=== PATIENT | female | born 1970 | race Caucasian/White ===

== ENCOUNTER → 2020-11-08 | Outpatient (CLI) | payer BC | END | disposition home or self-care (01) | LOC: LABMAIN 01:09 | PROVIDERS: ATTEND Emergency Medicine | DX: Z20.828 Contact with and (suspected) exposure to other viral communicable diseases (principal) | CPT/HCPCS: 36415; 86769 ==

== ENCOUNTER 2021-04-14 15:56 | Observation (INO) | payer BC ==
[2021-04-14 16:36] LABS: Basophils # (A) 0.1 k/uL (0-0.2); Basophils % (A) 1 %; Eosinophils # (A) 0.1 k/uL (0-0.7); Eosinophils % (A) 2 %; HCT 42.2 % (34.0-46.0); HGB 14.5 gm/dL (11.4-16.0); Lymphocytes # (A) 2.3 k/uL (1.0-4.8); Lymphocytes % (A) 34 %; MCH 31.3 pg (25.0-35.0); MCHC 34.4 g/dL (31.0-37.0); Mean Platelet Volume 7.7; Monocytes # (A) 0.3 k/uL (0-1.0); Monocytes % (A) 5 %; Neutrophils # (A) 3.7 k/uL (1.3-7.7); Neutrophils % (A) 56 %; Platelet Count 287 k/uL (150-450); RBC 4.64 m/uL (3.80-5.40); RDW 12.8 % (11.5-15.5); WBC 6.7 k/uL (3.8-10.6)
[2021-04-14 16:43] LABS: ALT 14 U/L (4-34); AST 24 U/L (14-36); African American GFR (CKD) >90 (>60 ml/min/1.73 sqM); Albumin 4.8 g/dL (3.5-5.0); Alkaline Phosphatase 80 U/L (38-126); Anion Gap 10 mmol/L; Blood Urea Nitrogen 20 mg/dL (7-17); Calcium 9.5 mg/dL (8.4-10.2); Carbon Dioxide 25 mmol/L (22-30); Chloride 106 mmol/L (98-107); Creatine Kinase 176 U/L (30-135); Glucose 118 mg/dL (74-99); Magnesium 2.3 mg/dL (1.6-2.3); Non-African American GFR(CKD) 84 (>60 ml/min/1.73 sqM); Sodium 141 mmol/L (137-145); Total Bilirubin 0.6 mg/dL (0.2-1.3); Total Protein 7.4 g/dL (6.3-8.2)
--- NOTE | 2021-04-14 16:43 | XR ---
EXAMINATION TYPE: XR chest 2V DATE OF EXAM: 04/14/2021 COMPARISON: NONE HISTORY: Pain and tingling TECHNIQUE: 2 view FINDINGS: Heart and mediastinum are normal. Lungs are clear. Diaphragm is normal. Bony thorax is inta ct. IMPRESSION: Normal chest.
[2021-04-14 16:51] LABS: D-Dimer 0.19 mg/L FEU (<0.60); INR 0.9 (<1.2); Partial Thromboplastin Time 22.6 sec (22.0-30.0); Prothrombin Time 9.5 sec (9.0-12.0)
--- NOTE | 2021-04-14 17:01 | ED ---
Chest Pain HPI - General Chief Complaint: Chest Pain Stated Complaint: Chest Pain Time Seen by Provider: 04/14/21 16:00 Source: patient, RN notes reviewed Mode of arrival: ambulatory Limitations: no limitations - History of Present Illness Initial Comments: This is a 50-year-old female with a benign history who states she had the onset today of chest pain this started in her right antecubital portion of her arm went across her chest down the left arm. She had 3 episodes us far lasting about a minute each. No prior history of anything like this. She does states she was moving wood yesterday but is unable to read produce the discomfort in any fashion. She denies any shortness of breath cough fevers chills nausea vomiting sweats. Pain is currently 0 at this time was MD Complaint: chest pain - Related Data Home Medications Medication Instructions Recorded Confirmed Cetirizine HCl [Zyrtec] 10 mg PO HS 04/14/21 04/14/21 Allergies Allergy/AdvReac Type Severity Reaction Status Date / Time No Known Allergies Allergy Verified 04/14/21 16:27 Review of Systems ROS Statement: Those systems with pertinent positive or pertinent negative responses have been documented in the HPI. ROS Other: All systems not noted in ROS Statement are negative. EKG Findings - EKG Results: EKG: interpreted by KRUNAL NAVARRO, sinus rhythm, normal axis, normal QRS, normal ST/T, no acute changes (Normal sinus rhythm 83. Interval 136 QRS 90 QT since QTC 352/413) Past Medical History Past Medical History: No Reported History History of Any Multi-Drug Resistant Organisms: None Reported Past Surgical History: Hysterectomy, Tonsillectomy Past Psychological History: No Psychological Hx Reported Smoking Status: Never smoker Past Alcohol Use History: Occasional Past Drug Use History: None Reported General Exam - General Exam Comments Initial Comments: This is a well-developed well-nourished awake alert oriented 3 female Limitations: no limitations General appearance: alert, in no apparent distress Head exam: Present: atraumatic, normocephalic, normal inspection Eye exam: Present: normal appearance, PERRL, EOMI. Absent: scleral icterus, conjunctival injection, periorbital swelling ENT exam: Present: normal exam, mucous membranes moist Neck exam: Present: normal inspection, full ROM. Absent: tenderness, meningismus, lymphadenopathy Respiratory exam: Present: normal lung sounds bilaterally. Absent: respiratory distress, wheezes, rales, rhonchi, stridor, chest wall tenderness Cardiovascular Exam: Present: regular rate, normal rhythm, normal heart sounds. Absent: systolic murmur, diastolic murmur, rubs, gallop, clicks GI/Abdominal exam: Present: soft, normal bowel sounds. Absent: distended, tenderness, guarding, rebound, rigid Extremities exam: Present: normal inspection, full ROM, normal capillary refill. Absent: tenderness, pedal edema, joint swelling, calf tenderness Back exam: Present: normal inspection Neurological exam: Present: alert, oriented X3, CN II-XII intact Psychiatric exam: Present: normal affect, normal mood Skin exam: Present: warm, dry, intact, normal color. Absent: rash Course Vital Signs 04/14/21 04/14/21 04/14/21 16:07 16:23 17:00 Temperature 98.4 F Pulse Rate 92 80 Respiratory 16 16 16 Rate Blood Pressure 195/109 193/95 O2 Sat by Pulse 99 100 Oximetry 04/14/21 17:29 Temperature Pulse Rate 76 Respiratory 16 Rate Blood Pressure 182/97 O2 Sat by Pulse 100 Oximetry Chest Pain MDM - MDM I did discuss findings with the patient she'll be admitted for inpatient evaluation and treatment of chest pain. I did discuss case with Dr. Mckeon, Dr. Davis did come the emergency department to see the patient. X-ray imaging unremarkable Disposition Clinical Impression: Atypical chest pain Disposition: ADMITTED IP TO THIS [facility] Condition: Fair Referrals: Aníbal Calix DO [Primary Care Provider] - 1-2 days
[2021-04-14] MEDS ORDERED: ASPIRIN 325 MG TAB PO STA (17:50)
[2021-04-14] MEDS ORDERED: NITROGLYCERIN SL TABS 0.4 MG TAB SUBLINGUAL PRN (17:58)
[2021-04-14] MEDS ORDERED: LOSARTAN 25 MG TAB PO STA (18:05)
[2021-04-14] MEDS ORDERED: NALOXONE 0.4 MG/ML 1 ML VIAL IV PRN (18:16)
[2021-04-14] MEDS ORDERED: MORPHINE SULFATE 4 MG/ML SYRINGE IV PRN (18:16)
[2021-04-14] MEDS ORDERED: ACETAMINOPHEN TAB 325 MG TAB PO PRN (18:16)
[2021-04-14] MEDS ORDERED: ONDANSETRON 4 MG/2 ML VIAL IVP PRN (18:16)
[2021-04-14] MEDS ORDERED: cloNIDine HCL 0.1 MG TAB PO PRN (18:18)
--- NOTE | 2021-04-14 18:30 | P.HPIM ---
History of Present Illness H&P Date: 04/14/21 Chief Complaint: chest pain Patient is a 50-year-old female with no known past medical history who presented to the ER with a height of chest discomfort. On arrival to the ER she was hypertensive with a blood pressure of 195/109. Initial EKG showed no evidence of ST segment elevation or depression. Initial troponin was negative, BNP was negative. Initial chest x-ray showed no acute process. Arrangements are made for admission. Yesterday unloading wood without chest pain. Right arm heaving tingling ache goes up the arm across the chest and down into the other arm. No shortness of breath. + diaphoresis, no nausea, no jaw pain. Feels anxious with the episodes. She has had 4 episode in total lasting 2 minutes or less. Have happened at rest and with movement. Had a headache yesterday. Intermittent chest discomfort for the last week that was attributed to breast pain initially and was pressing on breast. Pertinent positives and negatives as discussed in HPI, a complete review of systems was performed and all other systems are negative. General: non toxic, no distress, appears at stated age Derm: warm, dry Head: atraumatic, normocephalic, symmetric Eyes: EOMI, no lid lag, anicteric sclera, pupils equal round reactive to light ENT: Nose and ears atraumatic, no thrush, no pharyngeal erythema Neck: No thyromegaly, no cervical lymphadenopathy, trachea midline, supple Mouth: no lip lesion, mucus membranes moist Cardiovascular: S1S2 reg, no murmur, positive posterior tibial pulse bilateral, no edema, capillary refill less than 2 seconds Lungs: clear to ascultation bilateral, no ronchi, no rales, no wheeze, no accessory muscle use Abdominal: soft, nontender to palpation, no guarding, no appreciable organomegaly, normal bowel sounds Ext: no gross muscle atrophy, muscle strength muscle strength 5 out of 5 in all 4 extremities, no contractures Neuro: CN II-XI grossly intact, light touch intact all 4 extremities, finger to nose within normal limits, Psych: Alert, oriented, appropriate affect Chest pain, some symptoms typical others not - currently chest pain free, if recurrent consider heparin gtt and BB - ASA - follow troponins - tele - consult cardiology - lipids in AM HTN urgency - cozaar oral X 1 now - prn catapress - follow BP The patient is placed in observation with an anticipated less than 2 midnight stay for evaluation of chest pain. DVT prophylaxis: SCDs Discussed with: Patient, nursing, ED physician Anticipated discharge date: in 1-[address]: home A total of 45 minutes was spent on the care of this complex patient more than 50% of the time was spent in counseling and care coordination. Past Medical History Additional Past Medical History / Comment(s): seasonal allergies History of Any Multi-Drug Resistant Organisms: None Reported Past Surgical History: Hysterectomy, Tonsillectomy Additional Past Surgical History / Comment(s): breast biopsy R and L, Ex Lap Past Psychological History: No Psychological Hx Reported Smoking Status: Never smoker Past Alcohol Use History: Occasional Past Drug Use History: None Reported - Past Family History family Additional Family Medical History / Comment(s): Mom- HTN and HLD. Aunt- CABG in 40s. Uncle- [place] in 60s Medications and Allergies Home Medications Medication Instructions Recorded Confirmed Type Cetirizine HCl [Zyrtec] 10 mg PO HS 04/14/21 04/14/21 History Allergies Allergy/AdvReac Type Severity Reaction Status Date / Time No Known Allergies Allergy Verified 04/14/21 16:27 Physical Exam Osteopathic Statement: *. No significant issues noted on an osteopathic structural exam other than those noted in the History and Physical/Consult. Vitals: Vital Signs Temp Pulse Resp BP Pulse Ox 04/14/21 17:29 76 16 182/97 100 04/14/21 17:00 80 16 193/95 100 04/14/21 16:23 16 04/14/21 16:07 98.4 F 92 16 195/109 99 Intake and Output 04/14/21 04/14/21 04/14/21 06:59 14:59 22:59 Other: Weight 61.235 kg Results CBC & Chem 7: 04/14/21 16:20 04/14/21 16:20 Labs: Abnormal Lab Results - Last 24 Hours (Table) 04/14/21 Range/Units 16:20 BUN 20 H (7-17) mg/dL Glucose 118 H (74-99) mg/dL Creatine Kinase 176 H (30-135) U/L
[2021-04-15] MEDS ORDERED: LOSARTAN 25 MG TAB PO SCH (09:00)
[2021-04-15] MEDS ORDERED: ASPIRIN 325 MG TAB PO SCH (09:00)
--- NOTE | 2021-04-15 09:03 | P.CRDCN ---
History of Present Illness Consult date: 04/15/21 Chief complaint: Chest pain History of present illness: This is a very pleasant 50-year-old female patient with no significant medical history who was admitted to the observation unit for further evaluation of chest discomfort. 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 She woke herself with the EKG machine and an EKG was performed which I reviewed and showed sinus rhythm without any ischemic ST or T-wave abnormalities. Subsequently the patient was admitted for further evaluation. She was ruled out for acute coronary event. 3 sets of cardiac enzymes were checked and came in to be unremarkable. Beside that the patient was found to be hypertensive when initially was evaluated in the emergency department. She was started on losartan 25 mg by mouth daily and the pressure continues to be slightly elevated but better than before and I did increase the dose of losartan to 50 mg by mouth daily. I with consider adding diuretics if she continues to be hypertensive. Currently she is chest pain-free. I informed the patient that the chest disc omfort is likely related to elevated blood pressure but also we need to rule out severe underlying coronary artery disease and I will obtain an exercise treadmill stress test tomorrow. Past Medical History Past Medical History: No Reported History Additional Past Medical History / Comment(s): seasonal allergies History of Any Multi-Drug Resistant Organisms: None Reported Past Surgical History: Hysterectomy, Tonsillectomy Additional Past Surgical History / Comment(s): breast biopsy R and L, Ex Lap Past Anesthesia/Blood Transfusion Reactions: Previous Problems w/ Anesthesia, Postoperative Nausea & Vomiting (PONV) Additional Past Anesthesia/Blood Transfusion Reaction / Comment(s): difficulty waking up Past Psychological History: No Psychological Hx Reported Smoking Status: Never smoker Past Alcohol Use History: Occasional Past Drug Use History: None Reported - Past Family History family Additional Family Medical History / Comment(s): Mom- HTN and HLD. Aunt- CABG in 40s. Uncle- [place] in 60s Medications and Allergies Home Medications Medication Instructions Recorded Confirmed Type Cetirizine HCl [Zyrtec] 10 mg PO HS 04/14/21 04/14/21 History Allergies Allergy/AdvReac Type Severity Reaction Status Date / Time No Known Allergies Allergy Verified 04/14/21 16:27 Physical Exam Vitals: Vital Signs Temp Pulse Pulse Resp BP BP BP 04/15/21 07:00 97.7 F 72 16 155/101 154/100 04/15/21 00:29 98.1 F 74 18 156/95 04/14/21 22:50 98.3 F 80 192/107 174/94 04/14/21 19:51 98.1 F 71 16 176/105 04/14/21 17:29 76 16 182/97 04/14/21 17:00 80 16 193/95 04/14/21 16:23 16 04/14/21 16:07 98.4 F 92 16 195/109 Pulse Ox 04/15/21 07:00 99 04/15/21 00:29 98 04/14/21 22:50 99 04/14/21 19:51 99 04/14/21 17:29 100 04/14/21 17:00 100 04/14/21 16:23 04/14/21 16:07 99 Intake and Output 04/14/21 04/15/21 04/15/21 22:59 06:59 14:59 Other: Voiding Method Toilet Toilet # Voids 1 1 Weight 61.235 kg - Constitutional General appearance: no acute distress - Respiratory Respiratory: bilateral: CTA - Cardiovascular Rhythm: regular Heart sounds: normal: S1, S2 Results 04/14/21 16:20 04/14/21 16:20 Cardiac Enzymes 04/14/21 04/14/21 04/14/21 Range/Units 16:20 16:20 19:19 AST 24 (14-36) U/L Troponin I <0.012 <0.012 (0.000-0.034) ng/mL 04/14/21 Range/Units 21:47 AST (14-36) U/L Troponin I <0.012 (0.000-0.034) ng/mL Coagulation 04/14/21 Range/Units 16:20 PT 9.5 (9.0-12.0) sec APTT 22.6 (22.0-30.0) sec CBC 04/14/21 Range/Units 16:20 WBC 6.7 (3.8-10.6) k/uL RBC 4.64 (3.80-5.40) m/uL Hgb 14.5 (11.4-16.0) gm/dL Hct 42.2 (34.0-46.0) % Plt Count 287 (150-450) k/uL Comprehensive Metabolic Panel 04/14/21 Range/Units 16:20 Sodium 141 (137-145) mmol/L Potassium 4.0 (3.5-5.1) mmol/L Chloride 106 (98-107) mmol/L Carbon Dioxide 25 (22-30) mmol/L BUN 20 H (7-17) mg/dL Creatinine 0.82 (0.52-1.04) mg/dL Glucose 118 H (74-99) mg/dL Calcium 9.5 (8.4-10.2) mg/dL AST 24 (14-36) U/L ALT 14 (4-34) U/L Alkaline Phosphatase 80 (38-126) U/L Total Protein 7.4 (6.3-8.2) g/dL Albumin 4.8 (3.5-5.0) g/dL Current Medications Generic Name Dose Route Start Last Admin Trade Name Freq PRN Reason Stop Dose Admin Acetaminophen 650 mg 04/14/21 18:16 Acetaminophen Tab 325 Mg Tab PO Q6HR PRN Mild Pain or Fever > 100.5 Aspirin 325 mg 04/15/21 09:00 Aspirin 325 Mg Tab PO DAILY KEYONNA Clonidine 0.1 mg 04/14/21 18:18 04/14/21 22:56 Clonidine Hcl 0.1 Mg Tab PO 0.1 mg TID PRN Administration Blood Pressure - High Losartan Potassium 50 mg 04/15/21 09:00 Losartan 50 Mg Tab PO DAILY KEYONNA Morphine Sulfate 4 mg 04/14/21 18:16 Morphine Sulfate 4 Mg/Ml Syringe IV Q4HR PRN Severe Pain Naloxone HCl 0.2 mg 04/14/21 18:16 Naloxone 0.4 Mg/Ml 1 Ml Vial IV Q2M PRN Opioid Reversal Nitroglycerin 0.4 mg 04/14/21 17:58 Nitroglycerin Sl Tabs 0.4 Mg Tab SUBLINGUAL Q5M PRN Chest Pain Ondansetron HCl 4 mg 04/14/21 18:16 Ondansetron 4 Mg/2 Ml Vial IVP Q8HR PRN Nausea And Vomiting Intake and Output 04/14/21 04/15/21 04/15/21 22:59 06:59 14:59 Other: Voiding Method Toilet Toilet # Voids 1 1 Weight 61.235 kg 04/14/21 16:20 04/14/21 16:20 Assessment and Plan Assessment: Assessment #1 hypertension emergency #2 chest discomfort likely secondary to hypertension emergency Plan #1 acute coronary event was ruled out #2 increase the dose of losartan #3 consider adding diuretics if she continues to be hypertensive #3 obtain an exercise treadmill stress test tomorrow
[2021-04-15] MEDS: LOSARTAN 50 MG TAB PO SCH (09:06)
[2021-04-15 09:09] LABS: MCHC 32.5 g/dL (32.0-37.0); MCV 95.2 fL (80.0-97.0); Mean Platelet Volume 10.6 fL (9.5-12.2); Platelet Count 265 X 10*3/uL (140-440); RDW 12.6 % (11.5-14.5); WBC 6.11 X 10*3/uL (4.50-10.00)
[2021-04-15 09:56] LABS: African American GFR (CKD) 99.6 (60.0-200.0); Anion Gap 6.4 mmol/L (4.00-12.00); BUN/Creat Ratio 18.75 Ratio (12.00-20.00); Carbon Dioxide 26.6 mmol/L (21.6-31.8); Chol/HDL Ratio 3.66; Potassium 4.5 mmol/L (3.5-5.5)
[2021-04-15] MEDS: hydroCHLOROthiazide 25 MG TAB PO SCH (12:37)
--- NOTE | 2021-04-15 14:06 | P.PN ---
Subjective Progress Note Date: 04/15/21 (Delayed charting seen at 12:15) Principal diagnosis: chest pain Patient is a 50-year-old female with no known past medical history who presented to the ER with a height of chest discomfort. On arrival to the ER she was hypertensive with a blood pressure of 195/109. Initial EKG showed no evidence of ST segment elevation or depression. Initial troponin was negative, BNP was negative. Initial chest x-ray showed no acute process. Arrangements are made for admission. She was profoundly hypertensive and she was given a dose of Cozaar. There was concerns for possible hypertensive urgency. She seen by cardiology who recommended increasing the Cozaar, optimizing blood pressure control, and stress test on 04/16. Patient seen and examined at bedside. She does continue to have some chest heaviness. Nothing as significant as yesterday. No shortness of breath, nausea, vomiting, or diaphoresis. The long discussion but it appears she has hypertensive urgency and likely long-standing hypertension as an outpatient. She is aware that she'll need togo home on medications. General: Nontoxic, no distress, appears at stated age Derm: warm, dry Head: atraumatic, normocephalic, symmetric Eyes: EOMI, no lid lag, anicteric sclera Mouth: no lip lesion, mucus membranes moist Cardiovascular: S1S2 reg, no murmur, positive posterior tibial pulse bilateral, Lungs: CTA bilateral, no rhonchi, no rales , no accessory muscle use Abdominal: soft, nontender to palpation, no guarding, no appreciable organomegaly Ext: no gross muscle atrophy, no edema, no contractures Neuro: CN II-XI grossly intact, no focal neuro deficits Psych: Alert, oriented, appropriate affect Hypertensive urgency with chest pain -Continue with aspirin, troponins are negative -Lipid profile within normal limits -Cardiology recommendations appreciated: Stress test in a.m., Cozaar increased -Add hydrochlorothiazide -Follow blood pressures -Continue with when necessary Catapres -Continue to follow telemetry DVT prophylaxis: SCDs Discussed with: Patient, nursing Anticipated discharge: In a.m. Anticipated discharge place: Home A total of 25 minutes was spent on the care of this complex patient more than 50% of the time was spent in counseling and care coordination. Objective - Vital Signs Vital signs: Vital Signs Temp 97.7 F 06/13/21 07:00 Pulse 72 04/15/21 07:00 Resp 18 04/15/21 08:00 BP 154/100 04/15/21 07:00 Pulse Ox 99 04/15/21 07:00 Intake & Output 04/14/21 04/15/21 04/15/21 18:59 06:59 18:59 Intake Total 236 Balance 236 Weight 61.235 kg Intake: Oral 236 Other: Voiding Method Toilet # Voids 1 - Labs CBC & Chem 7: 04/15/21 06:24 04/15/21 06:24 Labs: Abnormal Lab Results - Last 24 Hours (Table) 04/14/21 Range/Units 16:20 BUN 20 H (7-17) mg/dL Glucose 118 H (74-99) mg/dL Creatine Kinase 176 H (30-135) U/L
[2021-04-15] MEDS: NITROGLYCERIN OINT 1 INCH/GM PACKET TOPICAL SCH ×2 (14:30→17:53)
[2021-04-16] MEDS: NITROGLYCERIN OINT 1 INCH/GM PACKET TOPICAL SCH ×3 (00:32→05:55)
[2021-04-16] MEDS: LOSARTAN 50 MG TAB PO SCH (08:32)
[2021-04-16] MEDS: hydroCHLOROthiazide 25 MG TAB PO SCH (08:32)
[2021-04-16] MEDS ORDERED: ASPIRIN 81 MG PO SCH (09:00)
--- NOTE | 2021-04-16 10:17 | P.PN ---
Subjective Progress Note Date: 04/16/21 HISTORY OF PRESENT ILLNESS: This is a very pleasant 50-year-old female patient with no significant medical history who was admitted to the observation unit for further evaluation of chest discomfort. 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 She woke herself with the EKG machine and an EKG was performed which I reviewed and showed sinus rhythm without any ischemic ST or T-wave abnormalities. Subsequently the patient was admitted for further evaluation. She was ruled out for acute coronary event. 3 sets of cardiac enzymes were checked and came in to be unremarkable. Beside that the patient was found to be hypertensive when initially was evaluated in the emergency department. She was started on losartan 25 mg by mouth daily and the pressure continues to be slightly elevated but better than before and I did increase the dose of losartan to 50 mg by mouth daily. I with consider adding diuretics if she continues to be hypertensive. Currently she is chest pain-free. I informed the patient that the chest discomfort is likely related to elevated blood pressure but also we need to rule out severe underlying coronary artery disease and I will obtain an exercise treadmill stress test tomorrow. 04/16/2021 Patient examined at the bedside. Patient denies any further episodes of chest pain or discomfort. She denies shortness of breath. She is sitting up in the ch air in no acute distress. Blood pressure 148/94. PHYSICAL EXAM: VITAL SIGNS: Reviewed. GENERAL: Well-developed in no acute distress. NECK: Supple. No JVD or thyromegaly LUNGS: Respirations even and unlabored. Lungs essentially clear to auscultation bilaterally. HEART: Regular rate and rhythm. S1 and S2 heard. EXTREMITIES: Normal range of motion. No clubbing or cyanosis. Peripheral pulses intact. No lower extremity edema ASSESSMENT: Chest pain Hypertension PLAN: Continue current cardiac medications. Increase losartan to 100 mg daily Monitor blood pressure Discontinue nitro paste Decrease aspirin to 81 mg daily. May discontinue if stress test is negative Obtain 2-D echo to assess cardiac structure and function Patient to undergo stress test today. If negative she may be discharged home today from a cardiac standpoint Nurse practitioner note has been reviewed by physician. Signing provider agrees with the documented findings, assessment, and plan of care. Objective - Vital Signs Vital signs: Vital Signs Temp 97.9 F 04/16/21 07:00 Pulse 78 04/16/21 07:00 Resp 18 04/16/21 07:00 BP 148/94 04/16/21 07:00 Pulse Ox 98 04/16/21 07:00 Intake & Output 04/15/21 04/16/21 04/16/21 18:59 06:59 18:59 Intake Total 236 Balance 236 Intake: Oral 236 Other: Voiding Method Toilet Toilet # Voids 1 1 - Labs CBC & Chem 7: 04/15/21 06:24 04/15/21 06:24
[2021-04-16] MEDS ORDERED: LOSARTAN 50 MG TAB PO STA (11:10)
--- NOTE | 2021-04-16 15:00 | P.DS ---
Providers Date of admission: 04/14/21 17:58 Expected date of discharge: 04/16/21 Attending physician: Aaliyah Pool DO Consults: 04/14/21 18:17 Consult Physician Routine Consulting Provider: Socrates Brandon Consult Reason/Comments: chest pain Do you want consulting provider notified?: Yes Primary care physician: Aníbal Fifi [facility] Course: Patient is a 50-year-old female with no known past medical history who presented to the ER with a height of chest discomfort. On arrival to the ER she was hypertensive with a blood pressure of 195/109. Initial EKG showed no evidence of ST segment elevation or depression. Initial troponin was negative, BNP was negative. Initial chest x-ray showed no acute process. Arrangements are made for admission. She was profoundly hypertensive and she was given a dose of Cozaar. There was concerns for possible hypertensive urgency. She was seen by cardiology. She underwent a cardiac stress test that was reported negative. She was cleared by cardiology for discharge. She'll follow-up with her PCP for further management of her blood pressure. Patient Condition at Discharge: Fair Plan - Discharge Summary Discharge Rx Participant: No New Discharge Prescriptions: New Losartan [Cozaar] 50 mg PO DAILY #30 tab hydroCHLOROthiazide [Hydrodiuril] 25 mg PO DAILY #30 tab No Action Cetirizine HCl [Zyrtec] 10 mg PO HS Discharge Medication List Cetirizine HCl [Zyrtec] 10 mg PO HS 04/14/21 [History] Losartan [Cozaar] 50 mg PO DAILY #30 tab 04/16/21 [Rx] hydroCHLOROthiazide [Hydrodiuril] 25 mg PO DAILY #30 tab 04/16/21 [Rx] Follow up Appointment(s)/Referral(s): Aníbal Calix DO [Primary Care Provider] - 1-2 days Discharge Disposition: HOME SELF-CARE
[2021-04-16 15:12] VITALS: BP 128/83; PULSE 94; RESP 16; TEMP 98.1
[2021-04-17] MEDS ORDERED: LOSARTAN 50 MG TAB PO SCH (09:00)
--- NOTE | 2021-04-17 11:45 | ECHOF ---
Referral Reason:LV function MEASUREMENTS -------- HEIGHT: 152.4 cm WEIGHT: 61.2 kg BP: IVSd: 1.1 cm (0.6 - 1.1) LVIDd: 3.7 cm (3.9 - 5.3) LVPWd: 1.2 cm (0.6 - 1.1) IVSs: 1.3 cm LVIDs: 2.6 cm LVPWs: 1.3 cm LAESV Index (A-L): 18.37 ml/m Ao Diam: 2.6 cm (2.0 - 3.7) AV Cusp: 1.8 cm (1.5 - 2.6) LA Diam: 3.1 cm (2.7 - 3.8) MV EXCURSION: 13.666 mm (> 18.000) MV EF SLOPE: 45 mm/s (70 - 150) EPSS: 0.3 cm MV E Jonathan: 0.35 m/s MV DecT: 240 ms MV A Jonathan: 0.93 m/s MV E/A Ratio: 0.37 RAP: 5.00 mmHg RVSP: 21.70 mmHg FINDINGS -------- Sinus rhythm. This was a technically adequate study. LV size, wall thickness and systolic function are normal, with an EF greater than 55%. The left mdady tricular size is normal. The right ventricle is normal in size. Normal LA size by volume 22+/-6 ml/m2. The right atrial size is normal. The aortic valve is trileaflet, and appears structurally normal. No aortic stenosis or regurgitation. The mitral valve is normal. Mild mitral regurgitation is present. The tricuspid valve appears structurally normal. Mild tricuspid regurgitation present. Right vent ricular systolic pressure is normal at < 35 mmHg. There is no pulmonic regurgitation present. The aortic root size is normal. There is no pericardial effusion. CONCLUSIONS -------- 1. LV size, wall thickness and systolic function are normal, with an EF greater than 55%. 2. The left ventricular size is normal. 3. Normal LA size by volume 22+/-6 ml/m2. 4. The aortic valve is trileaflet, and appears structurally normal. No aortic stenosis or regurgitati on. 5. Mild mitral regurgitation is present. 6. Mild tricuspid regurgitation present. 7. There is no pericardial effusion. PRINT OPERATOR: Angeles Colbert RDCS
--- NOTE | 2021-04-18 13:58 | EST ---
EXERCISE STRESS DATE OF SERVICE: AGE: 50 SEX: F HT: @@ WT: @@ PROTOCOL: @@ STAGE: @@ DURATION OF EXERCISE: @@ HEART RATE REST: @@ BLOOD PRESSURE REST: @@ MAXIMUM HEART RATE ACHIEVED: @@ MAXIMUM BLOOD PRESSURE: @@ 85% MPHR: @@ 100% MPHR: @@ METS: @@ RESULTS: Baseline rhythm is sinus mechanism, rate of 97, normal axis. RSR prime. Baseline blood pressure 179/116 mmHg. Patient exercised on Blair protocol for 9 minutes 39 seconds reaching peak rate of 159 beats per minute which is equal to 94% maximum predicted heart rate. Peak blood pressure 171/68 mmHg. Test was terminated secondary to fatigue. There was no chest pain. Electrocardiograph monitoring revealed occasional PVCs. There was no evidence of diagnostic ischemic ST deviation. CONCLUSION: 1. Good exercise tolerance with occasional PVCs. 2. Normal electrocardiograph stress testing with no evidence of stress-induced ischemia. MMODL / IJN: [id number] /
== END 2021-04-16 15:36 | disposition home or self-care (01) ==
LOC: EC 15:56 → 6NMEDSUR 17:58
PROVIDERS: ADMIT Internal Medicine; ATTEND Internal Medicine
DX: I16.1 Hypertensive emergency (principal); I10 Essential (primary) hypertension; X50.0XXA Overexertion from strenuous movement or load, initial encounter; Z20.822 Contact with and (suspected) exposure to COVID-19; R20.2 Paresthesia of skin; N64.4 Mastodynia; J30.2 Other seasonal allergic rhinitis; Z79.899 Other long term (current) drug therapy; Z90.710 Acquired absence of both cervix and uterus; Z82.49 Family history of ischemic heart disease and other diseases of the circulatory system
CPT/HCPCS: 93005 ×2; 36415; 93017; 93306; 85379; 83880; 80061; 80053; 80048; 82550; 83735; 84484; 85025; 85027; 85610; 85730; 87635; 71046; G0378 ×3

== ENCOUNTER → 2021-09-23 | Outpatient (CLI) | payer BC, OTHER | END | disposition home or self-care (01) | LOC: LABWHC1 12:02 | PROVIDERS: ATTEND Emergency Medicine | DX: Z20.822 Contact with and (suspected) exposure to COVID-19 (principal) | CPT/HCPCS: 87635 ==

== ENCOUNTER → 2021-11-16 | Outpatient (CLI) | payer BC, OTHER ==
[2021-11-16 22:38] LABS: HCT 45.7 % (37.2-46.3); HGB 14.9 g/dL (12.0-15.0); MCH 30.4 pg (27.0-32.0); MCHC 32.6 g/dL (32.0-37.0); MCV 93.3 fL (80.0-97.0); Mean Platelet Volume 10.6 fL (9.5-12.2); Platelet Count 328 X 10*3/uL (140-440); RDW 12.2 % (11.5-14.5); WBC 7.56 X 10*3/uL (4.50-10.00)
[2021-11-16 23:43] LABS: African American GFR (CKD) 84.6 (60.0-200.0); Anion Gap 8.2 mmol/L (10.00-18.00); BUN/Creat Ratio 18.22 Ratio (12.00-20.00); Blood Urea Nitrogen 16.6 mg/dL (9.0-27.0); Calcium 10.4 mg/dL (8.7-10.3); Carbon Dioxide 31.9 mmol/L (20.0-27.5); Potassium 4.2 mmol/L (3.5-5.5)
== END | disposition home or self-care (01) ==
LOC: LABWHC1 12:24
PROVIDERS: ATTEND Internal Medicine Interventional Cardiology
DX: I16.9 Hypertensive crisis, unspecified (principal)
CPT/HCPCS: 36415; 80048; 84450; 84460; 85027

== ENCOUNTER → 2022-01-02 | Outpatient (CLI) | payer BC, OTHER | END | disposition home or self-care (01) | LOC: LABWHC1 20:52 | PROVIDERS: ATTEND Internal Medicine Infectious Disease | DX: U07.1 COVID-19 (principal) | CPT/HCPCS: 87635 ==

== ENCOUNTER → 2025-05-05 | Outpatient (CLI) | payer MEDICAID ==
--- NOTE | 2025-05-09 07:05 | MR ---
EXAMINATION TYPE: MR knee RT wo con DATE OF EXAM: 05/05/2025 COMPARISON: NONE HISTORY: Rt knee pain, swelling and locking inner and outer x3 weeks TECHNIQUE: Multiplanar, multisequence images of the knee is performed without IV contrast. FINDINGS: MEDIAL MENISCUS: Oblique and vertical increased signal posterior horn extends to articular surface. LATERAL MENISCUS: Anterior and posterior horns are intact without tear. CRUCIATE LIGAMENTS: The anterior and posterior cruciate ligaments are intact and unremarkable. COLLATERAL LIGAMENTS: The medial collateral ligament and lateral collateral ligament complex are inta ct. Fluid signal surrounds the medial collateral ligament. EXTENSOR MECHANISM: Visualized quadriceps and patellar tendons are intact. EFFUSION: Small size suprapatellar joint effusion. POPLITEAL CYST: Moderate ill-defined fluid in the popliteal fossa. TRICOMPARTMENT SPACES: Mild tricompartment joint space loss without spurring. CARTILAGE: Tricompartmental articular cartilage is maintained. BONE MARROW SIGNAL: No focal abnormal marrow signal is appreciated. OTHER: No additional significant abnormality is appreciated. IMPRESSION: 1. Full-thickness tear posterior horn medial meniscus. 2. 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 3. Small patellar joint effusion. 4. Suspected ruptured small to moderate size popliteal cyst. 5. [id number] MCL sprain injury. [facility], , 05/09/2025 7:03 AM
== END | disposition home or self-care (01) ==
LOC: RADMRIMAIN 21:15
PROVIDERS: ATTEND Orthopaedic Surgery
DX: S83.206A Unspecified tear of unspecified meniscus, current injury, right knee, initial encounter (principal); S83.241A Other tear of medial meniscus, current injury, right knee, initial encounter; S83.411A Sprain of medial collateral ligament of right knee, initial encounter; M71.21 Synovial cyst of popliteal space [Baker], right knee; M17.11 Unilateral primary osteoarthritis, right knee; X58.XXXA Exposure to other specified factors, initial encounter